=== PATIENT | female | born 1995 | race Caucasian/White ===

== ENCOUNTER 2018-08-14 18:34 | Emergency (ER) | payer SELFPAY ==
[2018-08-14] MEDS: SOD CHLORIDE 0.9% 500 ML IV (18:56)
[2018-08-14] MEDS: LORAZEPAM 2 MG INJ IV (19:12)
[2018-08-14] MEDS: LEVETIRACETAM 1000 MG (PMX) 100 ML IVPB (19:12)
[2018-08-14] MEDS ORDERED: ACETAMINOPHEN 500 MG TAB (19:43)
[2018-08-14] MEDS: ACETAMINOPHEN 500 MG TAB PO (19:45)
== END 2018-08-14 20:38 | disposition home or self-care (01) ==
LOC: E/R 18:34
DX: G40.909 Epilepsy, unspecified, not intractable, without status epilepticus (principal); R40.2252 Coma scale, best verbal response, oriented, at arrival to emergency department; R40.2362 Coma scale, best motor response, obeys commands, at arrival to emergency department; R40.2142 Coma scale, eyes open, spontaneous, at arrival to emergency department
CPT/HCPCS: 82962; 84703; 96374; 96375; 99284-25